=== PATIENT | female | born 1955 | race Caucasian/White ===

== ENCOUNTER 2017-05-20 12:00 | Outpatient (RCR) | payer BC, SELFPAY ==
--- NOTE | 2017-04-21 15:51 | HP.PTEVAL ---
Patient's Visit Information FLAVIO DUMONT is a 62 year old F referred to Physical Therapy by Juancho LEONG with a diagnosis of Back pain. Date of Evaluation: 04/21/17 Physical Therapist: Wilder Bajwa DPT, OC - Visit Plan Frequency: 2x /Week Duration: 4-6 Weeks Plan: 2x/week for 4 weeks for. 1. quad/ITB/piri stretching after rollout and long leg distraction/belt mobs. 2. gradual hip strength progression to tolerance start NWB. 3. moist heat as needed. 4. Progress HEP stretches asnd strength. - Subjective Subjective: September of 2015 got LBP insidious onset. Has exercises that she does intermittently. 75% better now than 1.5 years ago. Has had steroids and pain management. MRI has shown bone spurs and disc protrusion. Also has hip bursitis L and has had injections there before. Spinal injections did nto help as much as hip injections. Said it was not time for hip replacement yet. Dr. Pastor is thinking about a pain implant whcih she did not want so he suggested PT again. Pain is intermittent and is comfy at rest. 10 minutes of walking starts to hurt outter L hip. Back does not hurt at all. Standing too long hurts also. Sitting too much can hurt to get up. Sleep is OK most of time but sometimes hard to get comfy. Activities at home are difficult to be on feet too long and to climb steps. Basic ADLs are OK unless she does too much, has to do a little at a time.. Life normal but it hurts. 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 No numbness and tingling. - Pain L lateral hip and posterior. Pain Intensity (Out of 10): 0 Pain Intensity Range: 0, 4 - Objective Patioent ambulates into PT slow and L hip never extends. Mild L antalgia intermittently. Steps are reciprocal with one rail and pain left lateral hip. + L DAVID and FADDIR and scour. Limited L hip ROM in rotations to 20 er and 5 IR limited by pain. end range flexion is painful. l hip ext limited to -5 degrees, quad very tight as is ITB. L hip abd 8 degrees vs 20+ on R. R hip much more mobile and not painful. L hip tender in ITB and piri. L hip 4-/5 strength and painful in lateral hip with most contractions lying, seated much better(short lever arm). knee and ankle AROM WFL and strength 4+/5. LB AROM mild limtied in ext otherwise full and painfree. - Goals Goal 1:: Pain in L hip 1/10 at worst and 75% better overall. Goal Time Frame: 4-6 Weeks Goal 2:: Pateint ambulate with 5 degrees of hip ext L iwthout pain. Goal Time Frame: 4-6 Weeks Goal 3:: I approp HEP to minimize future problems. Goal Time Frame: 4-6 Weeks - Rehabilitation Potential Physical Therapy Diagnosis: Likely L hip degenerative pain Rehabilitation Potential: Fair - Anticipated Interventions Patient/Client Instruction: Educate patient on: Condition, Plan of Care For the Purpose of:: To decrease pain, To increase ROM, To improve ability of physical actions for home/community/work/leisure Therapeutic Exercise to Include: Strength training, Flexibilty training, Passive ROM, Active ROM For the Purpose of:: To decrease pain, To increase ROM, To improve ability of physical actions for home/community/work/leisure Manual Therapy Techniques to Include: Soft tissue mobilization For the Purpose of:: To decrease pain, To increase ROM, To improve nutrient delivery to tissue Thermo therapy (hot pack): Yes For the Purpose of:: To decrease pain, To improve nutrient delivery to tissue Thank you for the opportunity to evaluate your patient. For Medicare and Medicare HMO plans, please review the plan of care and approve it. It will need to be FAXED BACK to us at [phone] for Medicare purposes. Please let me know if there are questions or concerns regarding this plan of care. Physician Signature: Date:
--- NOTE | 2017-08-25 15:09 | HP.PTDCSUM ---
HP - PT D/C Summary It has been my pleasure to treat FLAVIO DUMONT under orders from Juancho Pastor, for the diagnosis of Back pain for a total of 9 visit(s). Discharge Date: 05/20/17 Please see the following information for a summary of their discharge status. - Subjective Subjective: Pain got better but then went back to bad again. Pain 4/10 lateral and posterior hip and locks up. Sleep is OK. Can only walk so much before it hurts(6 min). Feels better after departure from PT. Doing home stretches daily. No f/u with [facility]. - Pain L lateral hip and posterior. Pain Intensity (Out of 10): 0 - Objective Objective/Function: Walking is better without antalgia today and getting decent and symmetrical hip ext at end of stance phase. Steps are reciproca with little pain L hip. OVERALL PATIENT HAS STILL PAIN. THIS LOOKS TO BE AN ARTHRITIC HIP PROBLEM AND THAT SHOULD BE CONSIDERED IF/WHEN SHE DECIDES TO RETURN TO DOCTOR HIP INJECTION HAS HELPED IN THE PAST AND AT SOME POINT SHE WILL NEED ORTHO CONSULT. - Goals Goal 1:: Pain in L hip 1/10 at worst and 75% better overall. Goal Progress: Not Progressing Goal 2:: Pateint ambulate with 5 degrees of hip ext L iwthout pain. Goal 3:: I approp HEP to minimize future problems. Goal Progress: Goal Met - Plan Plan: pt to continue via HEP and community gym. Contact doctor if pain worsens. - D/C Information Discharge Comments: Pt doing slightly better functionally but still painful. Will continue on own and contact doctor for pain as needed. If there are questions or concerns regarding this patient's physical therapy, please feel free to call me at [phone]. Thank you for the referral of this patient. Sincerely, Wilder Bajwa, DPT, OC
== END 2017-05-20 19:00 | disposition home or self-care (01) ==
LOC: PT 12:00
PROVIDERS: Family Provider Internal Medicine; PCP Internal Medicine; Visit Provider Anesthesiology Pain Medicine
DX: M54.9 Dorsalgia, unspecified (principal)
CPT/HCPCS: 97110; 97161; 97530

== ENCOUNTER → 2017-09-27 14:58 | Outpatient (CLI) | payer OTHER, SELFPAY ==
[2017-09-27 16:02] LABS: Anion Gap 2 (5-15); BUN 11 mg/dL (7-18); BUN/Creat Ratio 20.4 RATIO (10-20); Calcium,Total 8.7 mg/dL (8.5-10.1); Chloride 105 mmol/L (98-107); Cholesterol 240 mg/dL (200); Creatinine, Serum 0.54 mg/dL (0.55-1.02); EST Glomerular Filtration Rate 121 mL/min (>60); Est Glom Filt Rate - Afr Amer 146 mL/min (>60); Glucose 83 mg/dL (74-106); High Density Lipoprotein 65 mg/dL; Potassium 3.8 mmol/L (3.5-5.1); Sodium Level 138 mmol/L (136-145); Triglycerides 120 mg/dL; Very Low Density Lipoprotein 24 mg/dL (5-40)
== END ==
PROVIDERS: Family Provider Family Medicine; PCP Family Medicine; Visit Provider Family Medicine
DX: Z00.00 Encounter for general adult medical examination without abnormal findings (principal); M25.552 Pain in left hip
CPT/HCPCS: 36415; 80048; 80061

== ENCOUNTER → 2018-05-19 15:15 | Outpatient (CLI) | payer MEDICARE, SELFPAY ==
--- NOTE | 2018-05-19 15:18 | BI_ITS ---
MAMMOGRAPHY - BILATERAL SCREENING REASON FOR EXAM: Female, 63 years old. Routine annual screening examination. PERTINENT HISTORY: Non-contributory. TECHNIQUE: Digital bilateral breast princess (3D mammographic acquisition) in the CC and MLO projections. 2-D mediolateral oblique (MLO) and craniocaudad (CC) views of both breasts were obtained. CAD: Full Field Digital Mammography with Computer Added Detection was performed. COMPARISON: Comparison is made with prior axial examination in March 16, 2017. FINDINGS: Breast Composition: There are scattered areas of fibroglandular density. There are no dominant masses or suspicious calcifications. No other significant abnormalities are identified. There has been no significant change since the prior study. BI/SCREENING MAMM (CAD), BILAT IMPRESSION: Stable bilateral screening mammogram. Yearly follow-up mammogram recommended. (A) ASSESSMENT CATEGORY: BIRADS Category 1: Negative. A letter regarding these results will be sent to the patient by the facility within 30 days. Approximately 10% of breast cancers are not detected by mammography. A normal mammogram should not delay biopsy of a clinically suspicious abnormality. [id number] Electronically Signed: Eugenio Perez MD at 8:37 EST , Service support ,
== END ==
PROVIDERS: Family Provider Family Medicine; PCP Family Medicine; Referring Provider Family Medicine; Visit Provider Family Medicine
DX: Z12.31 Encounter for screening mammogram for malignant neoplasm of breast (principal)
CPT/HCPCS: 77063; 77067

== ENCOUNTER → 2018-10-10 13:05 | Outpatient (CLI) | payer MEDICARE, SELFPAY ==
--- NOTE | 2018-10-10 13:20 | BD_ITS ---
STUDY: DUAL ENERGY X-RAY ABSORPTIOMETRY / DXA REASON FOR EXAM: Female, 63 years old. The patient is postmenopausal. Loss of height. TECHNIQUE: Bone Mineral Density (BMD) measurements of lumbar spine and bilateral hips were obtained. COMPARISON: None. FINDINGS: Lumbar Spine (L1-L4): g/cm2 (1.198) / T-score (0.2) / Z-score (1.7) Findings are suggestive of normal bone density with a low fracture risk. Increased kyphosis. Left Femur Total: g/cm2 (1.013) / T-score (0.0) / Z-score (1.3) Left Femoral Neck: g/cm2 (0.978) / T-score (-0.4) / Z-score (1.0) Right Femur Total: g/cm2 (0.992) / T-score (-0.1) / Z-score (1.1) Right Femoral Neck: g/cm2 (0.895) / T-score (-1.0) / Z-score (0.5) BD/Dexa Bone Density Study IMPRESSION: The patient is considered normal as outlined below according to World Hiram Organization (WHO) criteria with a low fracture risk. Reference Information: The T-score is the number of standard deviations above or below the standard which is normal for young adults at their peak bone mineral density. The World Health Organization (WHO) interprets the T-scores as follows: Above -1 Normal bone density Between -1 and -2.5 Osteopenia Equal to / or below -2.5 Osteoporosis As a practical clinical guideline, osteopenia may be graded as follows: Mild -1 through -1.5 Moderate -1.6 through -2.0 Severe -2.1 through -2.4 The Z-score is the number of standard deviations above or below age-matched controls. A Z-score of less than -1.5 would be considered abnormal. References: 1. NIH Osteoporosis and Related Bone Diseases http://www.osteo.org 2. International Society for Clinical Densitometry http://www.iscd.org 3. National Osteoporosis Foundation http://www.nof.org Electronically Signed: Eugenio Perez, at 10:31 EDT , Service support ,
== END ==
PROVIDERS: Family Provider Family Medicine; PCP Family Medicine; Referring Provider Family Medicine; Visit Provider Family Medicine
DX: N95.9 Unspecified menopausal and perimenopausal disorder (principal)
CPT/HCPCS: 77080

== ENCOUNTER → 2019-05-21 15:20 | Outpatient (CLI) | payer MEDICARE, SELFPAY ==
--- NOTE | 2019-05-21 15:22 | BI_ITS ---
MAMMOGRAPHY - BILATERAL SCREENING REASON FOR EXAM: Female, 64 years old. Routine annual screening examination. PERTINENT HISTORY: Non-contributory. TECHNIQUE: Digital bilateral breast aicha (3D mammographic acquisition) in the CC and MLO projections. 2-D mediolateral oblique (MLO) and craniocaudad (CC) views of both breasts were obtained. CAD: Full Field Digital Mammography with Computer Added Detection was performed. COMPARISON: Comparison is made with prior study dated May 19, 2018. FINDINGS: Breast Composition: There are scattered areas of fibroglandular density. There are no dominant masses or suspicious calcifications. No other significant abnormalities are identified. There has been no significant change since the prior study. BI/SCREEN MAMM (CAD) W/AICHA BILAT IMPRESSION: Stable bilateral screening mammogram. Yearly follow-up mammogram recommended. (A) ASSESSMENT CATEGORY: BIRADS Category 1: Negative. A letter regarding these results will be sent to the patient by the facility within 30 days. Approximately 10% of breast cancers are not detected by mammography. A normal mammogram should not delay biopsy of a clinically suspicious abnormality. [id number] Electronically Signed: Eugenio Perez, at 8:26 EST , Service support ,
== END ==
PROVIDERS: PCP Family Medicine; Referring Provider Family Medicine; Visit Provider Family Medicine
DX: Z12.31 Encounter for screening mammogram for malignant neoplasm of breast (principal)
CPT/HCPCS: 77063; 77067

== ENCOUNTER 2019-08-12 12:37 | Emergency (ER) | payer MEDICARE, SELFPAY ==
[2019-08-12 12:39] VITALS: BP 152/71; PULSE 85; RESP 17; TEMP 36.5; O2SAT 99; BMI 36.1
--- NOTE | 2019-08-12 12:50 | RAD_ITS ---
STUDY: X-RAY - RIGHT HAND, ATTENTION FOURTH FINGER REASON FOR EXAM: Female, 64 years old. smashed distal 4th finger in a door yesterday TECHNIQUE: 3 view(s) of the finger were obtained. COMPARISON: None. FINDINGS: Normal metacarpal head. Normal metacarpophalangeal joint. Normal proximal phalanx. Normal middle phalanx. Normal distal phalanx. There is mild degenerative arthrosis of the proximal interphalangeal joint. There is chronic-appearing fragmentation There is mild degenerative arthrosis of the distal interphalangeal joint. There is no demonstrated fracture. RAD/Finger(s) Min 2 Views IMPRESSION: No acute fracture seen. Electronically Signed: Juan Valle MD at 13:50 EDT , Service support ,
--- NOTE | 2019-08-12 13:16 | ED.DCSUM_ITS ---
- ER Visit Summary Date of Service: 08/12/19 Chief Complaint: Finger injury History of Present Illness: The patient is a [address] Franco. She is right-hand dominant. Her tetanus is up-to-date. She got her right ring finger caught in a door yesterday. Reports she has a throbbing pain that was 4-10 at worst and is 1 out of 10 currently. Is worsened by touching it. It is relieved by rest. She does report she has paresthesias in her fingertip. She denies any other injuries or complaints. Physical Examination: Vitals: Stable. Afebrile. General: Well-nourished and well-developed. Head: Normocephalic atraumatic. Neck: Supple, no lymphadenopathy. No JVD. Nontender. Cardiovascular: Regular rate and rhythm. No murmurs. Respiratory: No respiratory distress. Clear to auscultation bilaterally. Abdominal: Soft, nontender, nondistended, normal bowel sounds. No guarding, rebound, or peritoneal signs. Back: Nontender. Extremities: There is a 1 cm laceration on the dorsum of the distal phalanx of her right fourth finger. There is no involvement of the nail. There is minimal active bleeding. There is moderate soft tissue swelling and mild tenderness to palpation. There is no evidence of a felon at this time. There is no erythema or warmth. Skin: Normal color, no rash. Neurologic: Alert and oriented ?3. Cranial nerves II through XII are intact. Normal strength and sensation. Psych: Normal affect. Test Results: X-ray is negative. Emergency Department Course and Treatment: Given that this is been more than 24 hours ago the I discussed the patient that it cannot be sutured. It will be allowed to heal by secondary intention. She will be placed on Keflex. She is given a first dose in the emergency department. Treatment Plan: Patient will be discharged with instructions to keep the area clean, dry, and covered. Place antibiotic ointment. Use Keflex to prevent infection. Follow-up with Dr. Franco in 1 week. Return to the emergency department for any worsening symptoms. Disposition: To home in improved and stable condition. Impression: 1. Laceration right fourth finger, 1 cm, not repaired. This note was generated with Helpmycashation software. It may contain incorrect words, spelling, and punctuation that were not noted in review of the chart prior to signing ED Disposition - Plan for ED Patient: Instructions: ED Laceration Old Not Sutr Prescriptions: Cephalexin [Keflex] 500 mg PO Q6 #20 capsule Referrals: Iesha Franco MD [Primary Care Provider] - 1 Week if not improving
[2019-08-12] MEDS: Cephalexin 250 MG Capsule 500 MG PO (13:27)
== END 2019-08-12 13:35 | disposition home or self-care (01) ==
LOC: ED 13:05
PROVIDERS: Emergency Provider Emergency Medicine; PCP Family Medicine
DX: S61.214A Laceration without foreign body of right ring finger without damage to nail, initial encounter (principal); W23.0XXA Caught, crushed, jammed, or pinched between moving objects, initial encounter; Y93.9 Activity, unspecified; Y92.9 Unspecified place or not applicable
CPT/HCPCS: 73140; 99283

== ENCOUNTER → 2020-06-11 14:41 | Outpatient (CLI) | payer MEDICARE, SELFPAY ==
[2020-06-11 19:14] LABS: Anion Gap 8 (5-15); BUN 12 mg/dL (7-18); BUN/Creat Ratio 20.7 RATIO (10-20); Chloride 105 mmol/L (98-107); Cholesterol 249 mg/dL (200); Creatinine, Serum 0.58 mg/dL (0.55-1.02); EST Glomerular Filtration Rate 110 mL/min (>60); Est Glom Filt Rate - Afr Amer 134 mL/min (>60); Glucose 89 mg/dL (74-106); High Density Lipoprotein 80 mg/dL; Potassium 3.7 mmol/L (3.5-5.1); Sodium Level 139 mmol/L (136-145); Triglycerides 48 mg/dL; Very Low Density Lipoprotein 10 mg/dL (5-40)
== END ==
PROVIDERS: PCP Family Medicine; Referring Provider Family Medicine; Visit Provider Family Medicine
DX: Z00.00 Encounter for general adult medical examination without abnormal findings (principal); E78.00 Pure hypercholesterolemia, unspecified
CPT/HCPCS: 36415; 80048; 80061

== ENCOUNTER → 2020-06-20 13:51 | Outpatient (CLI) | payer MEDICARE, SELFPAY ==
--- NOTE | 2020-06-20 13:54 | BI_ITS ---
MAMMOGRAPHY - BILATERAL SCREENING REASON FOR EXAM: Female, 65 years old. Routine annual screening examination. PERTINENT HISTORY: Non-contributory. TECHNIQUE: Digital bilateral breast aicha (3D mammographic acquisition) in the CC and MLO projections. 2-D mediolateral oblique (MLO) and craniocaudad (CC) views of both breasts were obtained. CAD: Full Field Digital Mammography with Computer Added Detection was performed. COMPARISON: Comparison is made with prior study dated 05/21/2019 and 05/19/2018. FINDINGS: Breast Composition: There are scattered areas of fibroglandular density. There are no dominant masses or suspicious calcifications. Stable small benign-appearing left axillary No other significant abnormalities are identified. There has been no significant change since the prior study. BI/SCRN MAMM (CAD)W/AICHA BILAT IMPRESSION: Stable bilateral screening mammogram. Yearly follow-up mammogram recommended. (A) ASSESSMENT CATEGORY: BIRADS Category 2: Benign. A letter regarding these results will be sent to the patient by the facility within 30 days. Approximately 10% of breast cancers are not detected by mammography. A normal mammogram should not delay biopsy of a clinically suspicious abnormality. [id number] Electronically Signed: Eugenio Perez MD at 14:53 EST , Service support ,
== END ==
PROVIDERS: PCP Family Medicine; Referring Provider Family Medicine; Visit Provider Family Medicine
DX: Z12.31 Encounter for screening mammogram for malignant neoplasm of breast (principal)
CPT/HCPCS: 77063; 77067

== ENCOUNTER 2020-06-24 08:19 | Outpatient (RCR) | payer MEDICARE, SELFPAY ==
[2020-06-24] MEDS: COVID-19 VACC, MRNA(PFIZER)/PF 30 MCG/0.3 ML SYRINGE IM (10:29)
[2020-07-15] MEDS: COVID-19 VACC, MRNA(PFIZER)/PF 30 MCG/0.3 ML SYRINGE IM (10:21)
== END 2020-09-23 23:59 ==
LOC: IMMUN 08:19
PROVIDERS: PCP Family Medicine; Referring Provider Family Medicine; Visit Provider Family Medicine
DX: Z23 Encounter for immunization (principal)
CPT/HCPCS: 0001A; 0002A; 91300

== ENCOUNTER → 2020-08-13 09:00 | Outpatient (CLI) | payer MEDICARE, SELFPAY ==
[2020-08-13 11:06] LABS: AST(SGOT) 14 U/L (15-37); Alanine Aminotransfer ALT/SGPT 18 U/L (13-56); Cholesterol 159 mg/dL (200); High Density Lipoprotein 72 mg/dL; Triglycerides 89 mg/dL; Very Low Density Lipoprotein 18 mg/dL (5-40)
== END ==
PROVIDERS: PCP Family Medicine; Referring Provider Family Medicine; Visit Provider Family Medicine
DX: E78.00 Pure hypercholesterolemia, unspecified (principal)
CPT/HCPCS: 36415; 80061; 84450; 84460

== ENCOUNTER 2021-06-12 11:08 | Outpatient (CLI) | payer MEDICARE, SELFPAY ==
[2021-06-12 12:43] LABS: AST(SGOT) 14 U/L (15-37); Alanine Aminotransfer ALT/SGPT 20 U/L (13-56); Cholesterol 166 mg/dL (200); High Density Lipoprotein 84 mg/dL; Triglycerides 58 mg/dL; Very Low Density Lipoprotein 12 mg/dL (5-40)
== END 2021-06-12 23:59 | disposition home or self-care (01) ==
LOC: MFPLAB 11:11
PROVIDERS: PCP Family Medicine; Referring Provider Family Medicine; Visit Provider Family Medicine
DX: E78.00 Pure hypercholesterolemia, unspecified (principal)
CPT/HCPCS: 36415; 80061; 84450; 84460

== ENCOUNTER 2021-06-30 14:41 | Outpatient (CLI) | payer MEDICARE, SELFPAY ==
--- NOTE | 2021-06-30 14:44 | BI_ITS ---
MAMMOGRAPHY - BILATERAL SCREENING 3-D TOMOSYNTHESIS REASON FOR EXAM: Female, 66 years old. screening PERTINENT HISTORY: No significant family history. TECHNIQUE: 2-D mammograms and 3-D Tomosynthesis of the breast (s) were performed. CAD was performed. COMPARISON: 06/20/2020 FINDINGS: The breast composition is heterogeneously dense that can obscure small breast masses. Scattered benign calcifications are seen. No dense spiculated masses or suspicious microcalcifications are identified. No architectural distortion is identified. There is no skin thickening or retraction. There has been no significant change since the prior study. BI/SCRN MAMM (CAD)W/AICHA BILAT IMPRESSION: No mammographic signs of malignancy. Routine yearly mammograms recommended. ASSESSMENT CATEGORY: BIRADS Category 1: Negative. A letter regarding these results will be sent to the patient by the facility within 30 days. FOLLOW UP RECOMMENDATION: Yearly follow up mammogram recommended. (A) Approximately 10% of breast cancers are not detected by mammography. A normal mammogram should not delay biopsy of a clinically suspicious abnormality. Electronically Signed: Jose Miguel Samuel MD at 18:07 EDT ,
--- NOTE | 2021-06-30 14:48 | BD_ITS ---
STUDY: DUAL ENERGY X-RAY ABSORPTIOMETRY / DXA REASON FOR EXAM: Female, 66 years old. [id number]. Patient is postmenopausal. TECHNIQUE: Bone Mineral Density (BMD) measurements of lumbar spine and bilateral hips were obtained. COMPARISON: Comparison is made with prior study dated 10/10/2018. FINDINGS: Lumbar Spine (L1-L4): g/cm2 (0.888) / T-score (-1.4) / Z-score (0.6) Findings are suggestive of osteopenia with a low fracture risk. Left Femur Total: g/cm2 (0.988) / T-score (0.4) / Z-score (1.8) Left Femoral Neck: g/cm2 (0.859) / T-score (0.1) / Z-score (1.8) Right Femur Total: g/cm2 (1.005) / T-score (0.5) / Z-score (1.9) Right Femoral Neck: g/cm2 (0.755) / T-score (-0.8) / Z-score (0.9) The T-Scores on the most recent prior examination were: Lumbar Spine (L1-L4): There has been worsening of bone density since the previous examination. Left Femur Total: which represents an improvement of 4.4%. Right Femur Total: which represents an improvement of 8.4%. BD/Dexa Bone Density Study IMPRESSION: The patient is considered osteopenic as outlined below according to World Hiram Organization (WHO) criteria with a low fracture risk. There has been improvement of bone density since the previous examination. Reference Information: The T-score is the number of standard deviations above or below the standard which is normal for young adults at their peak bone mineral density. The World Health Organization (WHO) interprets the T-scores as follows: Above -1 Normal bone density Between -1 and -2.5 Osteopenia Equal to / or below -2.5 Osteoporosis As a practical clinical guideline, osteopenia may be graded as follows: Mild -1 through -1.5 Moderate -1.6 through -2.0 Severe -2.1 through -2.4 The Z-score is the number of standard deviations above or below age-matched controls. A Z-score of less than -1.5 would be considered abnormal. References: 1. NIH Osteoporosis and Related Bone Diseases www osteo.org 2. International Society for Clinical Densitometry www iscd.org 3. National Osteoporosis Foundation www nof.org Electronically Signed: Eugenio Perez MD at 9:28 EDT ,
== END 2021-06-30 23:59 | disposition home or self-care (01) ==
LOC: OPBD 14:42
PROVIDERS: PCP Family Medicine; Visit Provider Family Medicine
DX: N95.9 Unspecified menopausal and perimenopausal disorder (principal); Z12.31 Encounter for screening mammogram for malignant neoplasm of breast
CPT/HCPCS: 77063; 77067; 77080

== ENCOUNTER → 2022-06-14 | Outpatient (CLI) | payer MEDICARE, SELFPAY ==
[2022-06-14 18:11] LABS: AST(SGOT) 15 U/L (15-37); Alanine Aminotransfer ALT/SGPT 20 U/L (13-56); Cholesterol 180 mg/dL (200); High Density Lipoprotein 75 mg/dL; Triglycerides 114 mg/dL; Very Low Density Lipoprotein 23 mg/dL (5-40)
== END | disposition home or self-care (01) ==
LOC: MFPLAB 14:46
PROVIDERS: PCP Family Medicine; Visit Provider Family Medicine
DX: E78.00 Pure hypercholesterolemia, unspecified (principal)
CPT/HCPCS: 36415; 80061; 84450; 84460

== ENCOUNTER → 2022-07-02 | Outpatient (CLI) | payer MEDICARE, SELFPAY ==
--- NOTE | 2022-07-02 11:59 | BI_ITS ---
MAMMOGRAPHY - BILATERAL SCREENING 3-D TOMOSYNTHESIS REASON FOR EXAM: Female, 67 years old. Routine screening PERTINENT HISTORY: No significant family history. TECHNIQUE: 2-D mammograms and 3-D Tomosynthesis of the breast (s) were performed. CAD was performed. COMPARISON: 06/30/2021 FINDINGS: The breast composition is composed of scattered fibroglandular density. Scattered benign calcifications are seen. No dense spiculated masses or suspicious microcalcifications are identified. No architectural distortion is identified. There is no skin thickening or retraction. There has been no significant change since the prior study. BI/SCRN MAMM (CAD)W/AICHA BILAT IMPRESSION: No mammographic signs of malignancy. Routine yearly mammograms recommended. ASSESSMENT CATEGORY: BIRADS Category 1: Negative. A letter regarding these results will be sent to the patient by the facility within 30 days. FOLLOW UP RECOMMENDATION: Yearly follow up mammogram recommended. (A) Approximately 10% of breast cancers are not detected by mammography. A normal mammogram should not delay biopsy of a clinically suspicious abnormality. Electronically Signed: Fer Martins MD at 12:33 EDT ,
== END | disposition home or self-care (01) ==
LOC: OPBI 11:58
PROVIDERS: PCP Family Medicine; Visit Provider Family Medicine
DX: Z12.31 Encounter for screening mammogram for malignant neoplasm of breast (principal)
CPT/HCPCS: 77063; 77067

== ENCOUNTER 2022-07-09 13:00 | Outpatient (RCR) | payer MEDICARE, SELFPAY ==
--- NOTE | 2022-06-15 15:46 | HP.PTEVAL_ITS ---
Patient's Visit Information FLAVIO DUMONT is a 67 year old F referred to Physical Therapy by Dr. Iesha Franoc MD with a diagnosis of PIRIFORMIS. Date of Evaluation: 06/15/22 Physical Therapist: Steven Guzman PT, Cert MDT, OCS - Visit Plan Frequency: 2x /Week Duration: 4 Weeks Plan: PT INTERVETIONS LE FLEXABILITY , LUMBAR ROM , DLS , HIP STRENGTHENING ,POSTURAL EX'S, AND MODALTIES - Subjective This 67 y/o female presents to physical therapy piriformis. Patient has had right LS pain. Etiology of symptoms no specific. Seen Dr recommended PT . No diagnostic. Aggravating factors sitting/standing/bending/lifting. Alleviating factors rest. Denies paresthesia/tingling-. Bowel/bladder-. Coughing/sneezing-. Patient sleeping good. No abnormal night pain. Patient had lumbar surgery discectomy 1993. Patient had PT in hip. Patient pain affects QOL . Patient goals no more pain. SOCIAL: . VOCATION: retired - Pain Left Back Pain Intensity (Out of 10): 6 Pain Intensity Range: 10 - Objective POSTURE: mild forward posture. PALPATION: tender SI/LS ,piriformis. SYMTRIES: align. GAIT: Ambulates with reciprocal pattern mild forward posture. LUMBAR ROM: flexion mod loss pain ,extension min loss , side glides min loss. FLEXABLITY: IR 25 degrees ,piriformis min tight. MMT: quads/hams 4/5 ,peak force right hip 12.2,abduction 10.5,ankle 4/5 - Special Tests L/S Slump test left side: Negative L/S Slump test right side: Negative L/S Left Straight Leg Raise: Negative L/S Right Straight Leg Raise: Negative Lumbar Standing: Flexion - Mechanical Response: No effect Lumbar Standing: Flexion - Symptoms During Testing: Increases Lumbar Standing: Flexion - Symptoms After Testing: Worse Lumbar Standing: Extension - Mechanical Response: No effect Lumbar Standing: Extension - Symptoms During Testing: No effect Lumbar Standing: Extension - Symptoms After Testing: No effect Lumbar Standing: Right Side Glides - Mechanical Response: No effect Lumbar Standing: Right Side [place] - Symptoms During Testing: No effect Lumbar Standing: Right Side [place] - Symptoms After Testing: No effect Lumbar Standing: Left Side [place] - Mechanical Response: No effect Lumbar Standing: Left Side [place] - Symptoms During Testing: No effect Lumbar Standing: Left Side [place] - Symptoms After Testing: No effect Lumbar Lying: Flexion - Mechanical Response: No effect Lumbar Lying: Flexion - Symptoms During Testing: Increases Lumbar Lying: Flexion - Symptoms After Testing: No worse Lumbar Lying: Extension - Mechanical Response: No effect Lumbar Lying: Extension - Symptoms During Testing: Increases Lumbar Lying: Extension - Symptoms After Testing: No worse R Hip Scour: Negative R Hip Trendelenberg - Glut Medius: Negative R Hip Cherelle - IT Band: Negative - Balance/Special Test Scores Oswestry Low Back Score: 21 - Goals Goal 1:: I with HEP Goal Time Frame: 4-6 Weeks Goal 2:: I with posture/body mechanics 90 % of the time. Goal Time Frame: 4-6 Weeks Goal 3:: Patient to demonstrate 50% improvement with decrease function and less pain. Goal Time Frame: 4-6 Weeks Goal 4:: Patient to improve lumbar ROM for function of recovery to tie shoes Goal Time Frame: 4-6 Weeks Goal 5:: Patient to back oswestry score by 5 points to improve function. - Rehabilitation Potential Physical Therapy Diagnosis: This patient has right LS pain with weakness with hip abd ,flexion ,decrease ROM and worse with motion testing, and position with standing. thus benefit from skilled PT Rehabilitation Potential: Good - Anticipated Interventions Patient/Client Instruction: Educate patient on: Condition, Plan of Care For the Purpose of:: To decrease pain, To increase ROM, To improve muscle performance and motor function, To increase tolerance to activity/condition/position, To improve ability of physical actions for home/community/work/leisure, To improve health of tissue, To decrease soft tissue restriction, To increase flexibility/ROM Therapeutic Exercise to Include: Strength training, Postural training, Flexibilty training, Active ROM, Dynamic Lumbar Stabilization For the Purpose of:: To decrease pain, To increase ROM, To improve muscle performance and motor function, To increase tolerance to activity/condition/position, To improve ability of physical actions for home/community/work/leisure, To improve health of tissue, To decrease soft tissue restriction, To increase flexibility/ROM TENS: Yes IF ES: Yes Cryotherapy (ice pack, ice massage): Yes Thermo therapy (hot pack): Yes Ultrasound (thermal/non thermal): Yes For the Purpose of:: To decrease pain, To increase ROM, To improve nutrient delivery to tissue, To increase oxygenation perfusion, To improve health of tissue, To decrease soft tissue restriction Thank you for the opportunity to evaluate your patient. For Medicare and Medicare HMO plans, please review the plan of care and approve it. It will need to be FAXED BACK to us at [phone] for Medicare purposes. For Medicare only, by signing this I certify the plan of care. Please let me know if there are questions or concerns regarding this plan of care. Physician Signature: Date:
--- NOTE | 2022-11-14 18:15 | HP.PTDCSUM ---
Discharge Summary D/C summary: It has been my pleasure to treat FLAVIO DUMONT referred by Dr. Iesha Franco MD, with the diagnosis of PIRIFORMIS for a total of 8 visit(s). Discharge Date: 07/09/22 Please see the following information for a summary of their discharge status. Subjective Subjective: Patient reports some better ,But would like Pain Left Back: Pain Intensity (Out of 10): 2 R LB: Pain Intensity (Out of 10): 2 Overall Improvement % Improvement: 65 Objective Objective/Function: LUMBAR ROM: flexion mod loss pain ,extension min loss , side glides min loss. FLEXABLITY: IR 35 degrees ,piriformis min tight. MMT: quads/hams 4/5 ,peak force right hip 18.2,abduction 16.5 Goals Goal 1:: I with HEP Goal Progress: Goal Met Goal 2:: I with posture/body mechanics 90 % of the time. Goal Progress: Goal Met Goal 3:: Patient to demonstrate 50% improvement with decrease function and less pain. Goal Progress: Goal Met Goal 4:: Patient to improve lumbar ROM for function of recovery to tie shoes Goal Progress: Goal Met Goal 5:: Patient to back oswestry score by 5 points to improve function. Goal Progress: Goal Met Plan Plan: D/C D/C Information Discharge Comments: HEP d/c sentence: If there are questions or concerns regarding this patient's physical therapy, please feel free to call me at [phone]. Thank you for the referral of this patient. Sincerely, Steven Guzman, PT, Cert MDT, OCS Balance/Gait/Functional tests Balance/Special Test Scores Oswestry Low Back Score: 10
== END 2022-07-09 19:00 | disposition home or self-care (01) ==
LOC: PT 13:00
PROVIDERS: PCP Family Medicine; Referring Provider Family Medicine; Visit Provider Family Medicine
DX: G57.00 Lesion of sciatic nerve, unspecified lower limb (principal)
CPT/HCPCS: 97035; 97110; 97162

== ENCOUNTER → 2023-06-21 | Outpatient (CLI) | payer MEDICARE, SELFPAY ==
[2023-06-21 13:16] LABS: AST(SGOT) 18 U/L (15-37); Alanine Aminotransfer ALT/SGPT 19 U/L (13-56); Cholesterol 166 mg/dL (200); High Density Lipoprotein 77 mg/dL; Triglycerides 55 mg/dL; Very Low Density Lipoprotein 11 mg/dL (5-40)
== END | disposition home or self-care (01) ==
LOC: MFPLAB 10:12
PROVIDERS: PCP Family Medicine; Visit Provider Family Medicine
DX: E78.00 Pure hypercholesterolemia, unspecified (principal)
CPT/HCPCS: 36415; 80061; 84450; 84460

== ENCOUNTER → 2023-07-05 | Outpatient (CLI) | payer MEDICARE, SELFPAY ==
--- NOTE | 2023-07-05 10:39 | BI_ITS ---
MAMMOGRAPHY - BILATERAL SCREENING REASON FOR EXAM: Female, 68 years old. Routine annual screening examination. PERTINENT HISTORY: Non-contributory. TECHNIQUE: Digital bilateral breast aicha (3D mammographic acquisition) in the CC and MLO projections. 2-D mediolateral oblique (MLO) and craniocaudad (CC) views of both breasts were obtained. CAD: Full Field Digital Mammography with Computer Added Detection was performed. COMPARISON: Comparison is made with prior study July 02, 2022 and June 30, 2021. FINDINGS: Breast Composition: There are scattered areas of fibroglandular density. There are no dominant masses or suspicious calcifications. No other significant abnormalities are identified. There has been no significant change since the prior study. BI/SCRN MAMM (CAD)W/AICHA BILAT IMPRESSION: Stable bilateral screening mammogram. Yearly follow-up mammogram recommended. (A) ASSESSMENT CATEGORY: BIRADS Category 1: Negative. A letter regarding these results will be sent to the patient by the facility within 30 days. Approximately 10% of breast cancers are not detected by mammography. A normal mammogram should not delay biopsy of a clinically suspicious abnormality. [id number] Electronically Signed: Eugenio Perez MD at 11:34 EDT ,
== END | disposition home or self-care (01) ==
LOC: OPBI 10:39
PROVIDERS: PCP Family Medicine; Referring Provider Family Medicine; Visit Provider Family Medicine
DX: Z12.31 Encounter for screening mammogram for malignant neoplasm of breast (principal)
CPT/HCPCS: 77063; 77067

== ENCOUNTER → 2024-07-02 | Outpatient (CLI) | payer MEDICARE, SELFPAY ==
[2024-07-02 18:28] LABS: Hemoglobin A1c 5.9 % (<=5.6)
[2024-07-02 18:36] LABS: AST(SGOT) 15 U/L (<=31); Alanine Aminotransfer ALT/SGPT 8 U/L (<=34); Cholesterol 151 mg/dL (<=200); High Density Lipoprotein 69 mg/dL; Low Density Lipoprotein Calc. 68 mg/dL; Triglycerides 70 mg/dL; Very Low Density Lipoprotein 14 mg/dL (5-40); cholesterol:hdl ratio screen 2.18
== END | disposition home or self-care (01) ==
LOC: MFPLAB 12:14
PROVIDERS: PCP Family Medicine; Referring Provider Family Medicine; Visit Provider Family Medicine
DX: E66.01 Morbid (severe) obesity due to excess calories (principal); E78.00 Pure hypercholesterolemia, unspecified
CPT/HCPCS: 36415; 80061; 83036; 84443; 84450; 84460

== ENCOUNTER → 2024-07-12 | Outpatient (CLI) | payer MEDICARE, SELFPAY ==
--- NOTE | 2024-07-12 14:49 | BD_ITS ---
EXAM: DEXA BONE DENSITY STUDY 07/12/2024 REASON FOR EXAM: F,69 y/o patient is postmenopausal. TECHNIQUE: DXA scan of the lumbar spine and total body less head, using make and model. REFERENCE LINKS: ISCD Pediatric Positions ISCD Adult Positions COMPARISON: DEXA exam dated 06/30/2021 FINDINGS: BMD and Z-SCORES DEXA examination of lumbar spine shows a bone mineral density measures 0.928 grams/centimeter squared. T-score measures -1.0 and Z-score measures 1.2. There has been a significant increase in the bone mineral density of the lumbar spine by 4.5% since the prior study dated 06/30/2021. DEXA examination of the left femoral neck shows a bone mineral density measures 0.825 grams/centimeter squared. T-score measures -0.2 and Z-score measures 1.7. Total bone mineral density of the left hip measures 0.966 grams/centimeter squared. T-score measures 0.2 and Z-score measures 1.8. There has been a decrease in the bone mineral density of the left hip by 2.3% since the prior study dated 06/30/2021. DEXA examination of the right femoral neck shows a bone mineral density measured 0.748 g per cm2. T-score measures -0.9 and Z-score measures 1.0. Total bone mineral density of the right hip measures 0.984 grams/centimeter squared. T-score measures 0.3 and Z-score measures 1.9. There has been a decrease in the bone mineral density of the right hip by 2% since the prior study dated 06/30/2021. Fracture Risk Calculation: FRAX (10-year Fracture Risk) Score: The 10 year fracture risk index for major osteoporotic fracture is 7.8% and for hip fracture 0.8%. The patient does not meet the pharmacological treatment recommendations for prevention of osteoporosis BD/Dexa Bone Density Study IMPRESSION: Patient demonstrates osteopenia of the lumbar spine and normal bone mineral den sity of both hips. Recommend follow-up, if clinically warranted. Reading Location: [id number]
--- NOTE | 2024-07-12 14:49 | BI_ITS ---
EXAM: SCRN MAMM (CAD)W/AICHA BILAT DATE: 07/12/2024 CLINICAL HISTORY: F, Age 69 y/o , SCREENING BREAST CANCER BREAST CANCER RISK ASSESSMENT: Has not been recorded. TECHNIQUE: Bilateral screening digital breast tomosynthesis with 2D and 3D images. Computer aided detection. COMPARISON: Prior exam(s) dated 07/05/2019, 07/02/2022. FINDINGS: TISSUE DENSITY: The breast tissue is composed of scattered area of fibroglandular density. Bilateral Breast Mammographic Findings: Stable nodular masslike densities are seen in both breasts. Benign-appearing round microcalcifications are seen in both breasts. There are no other dominant masses, areas of architectural distortion, or suspicious calcifications in either breast. BI/SCRN MAMM (CAD)W/AICHA BILAT IMPRESSION: Right Breast: BIRADS 2 BENIGN FINDING. Left Breast: BIRADS 2 BENIGN FINDING. OVERALL FINAL ASSESSMENT: BIRADS 2 BENIGN FINDING RECOMMENDATION: Routine annual follow-up in 1 Year A letter with findings and recommendations will be mailed to the patient. Reading Location: [id number]
== END | disposition home or self-care (01) ==
LOC: OPBD 14:48
PROVIDERS: PCP Family Medicine
DX: Z13.820 Encounter for screening for osteoporosis (principal); Z78.0 Asymptomatic menopausal state; Z12.31 Encounter for screening mammogram for malignant neoplasm of breast
CPT/HCPCS: 77063; 77067; 77080

== ENCOUNTER 2024-09-14 11:49 | Day surgery (SDC) | payer MEDICARE, SELFPAY ==
[2024-09-14] VITALS (7 sets, daily range): BP systolic 110–151; BP diastolic 56–65; PULSE 65–78; RESP 16–18; TEMP 36.6–36.9; O2SAT 97–99; BMI 39.5
[2024-09-14] MEDS: Lactated Ringers 1,000 ML 15 ML IV (12:15)
--- NOTE | 2024-09-14 13:01 | PCM.PRE.AN2 ---
ASA Classification* ASA Classification ASA Classification: 3 Assessment & Plan Anesthesia* Anesthesia Assessment Anesthesia Assessment: Discussed sedation and/or anesthesia options, risks, benefits, and alternatives with patient/parents/legal guardian/POA. Questions invited. The patient/parents/legal guardian/POA seems to understand and agrees to proceed with anesthesia plan. Reviewed the physical assessment, medical history, allergy history and patient home medications list prior to surgery/procedure/anesthetic and documented any changes. Performed airway and anesthesia risk assessments. Anesthesia Type Anesthesia Type: MAC History Source History Obtained from:: Patient and Chart Anesthesia Focused Assessment* Temperature: 98.4 F Pulse Rate: 78 Blood Pressure: 151/63 Respiratory Rate: 18 Pulse Ox: 98 Oxygen Delivery Method: Room Air Airway Assessment Mouth opens: >3 cm Mallampati Score: III Teeth Condition: Dentures (Patient has full upper and lower dentures.) Neck Range of motion (ROM): Limited ROM (Slight decrease in extension) Focused Labs Anesthesia Preop lab: CBC CHEMISTRY Potassium 3.7 mmol/L (3.5-5.1) 06/11/20 14:43 06/11/20 Sodium 139 mmol/L (136-145) 06/11/20 14:43 06/11/20 BUN 12 mg/dL (7-18) 06/11/20 14:43 06/11/20 Creatinine 0.58 mg/dL (0.55-1.02) 06/11/20 14:43 06/11/20 Glucose 89 mg/dL (74-106) 06/11/20 14:43 06/11/20 TSH 1.920 uIU/mL (0.300-4.200) 07/02/24 12:17 07/02/24 COAG Pre-Assessment Diagnosis/Proposed Procedure Planned Operative Procedure(s): CSCOPE OA Anesthesia History 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 When Was Last Pacemaker Check QUESTION #4 FULL TEXT: You/Your Family Experience fever (hyperthermia) with Anesthesia Last Oral Intake Last Oral intake: Last Oral Intake NPO since 19:30 09/14/24 12:11 Meds taken in AM with sips of No 09/14/24 12:11 water? Meds patient instructed to take am of surgery PONV PONV - bio medical technician: PONV - bio medical technician Female Yes 09/13/24 09:13 HX of Motion Sickness No 09/13/24 09:13 HX of N/V After Surgery No 09/13/24 09:13 Non-Smoker Yes 09/13/24 09:13 Duration of Surgery greater No 09/13/24 09:13 than 60 minutes Number of Risk Factors 2 09/13/24 09:13 PONV Score Moderate Risk 09/13/24 09:13 Height & Weight Height & Weight: Anesthesia: Height & Weight Height 5 ft 2 in 09/14/24 12:11 Weight: 98 kg 09/14/24 12:11 Body Mass Index (BMI) 39.5 09/14/24 12:11 Respiratory Assessment Respiratory Assessment - bio medical technician: Respiratory Tract Infection Hx - bio medical technician Hx Respiratory Tract Infection No 09/13/24 09:13 STOP Sleep Apnea STOP Sleep Apnea - bio medical technician: STOP Sleep Apnea - bio medical technician Hx Hypertension No 09/13/24 09:13 Hx Sleep Apnea No 09/13/24 09:13 CPAP BIPAP Do you snore loudly (louder No 09/13/24 09:13 than talking or can be heard Do you often feel tired/ No 09/13/24 09:13 fatigued/ sleepy during daytime? Has anyone observed you stop No 09/13/24 09:13 breathing during sleep? STOP Results Negative 09/13/24 09:13 QUESTION #5 FULL TEXT : Do you snore loudly (louder than talking or can be heard through closed doors)? 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 Specify any problems Hx of Preganancy in last 3 No 09/13/24 09:13 Months Nurse Filling Out Transfusion DSCHRIBER 09/13/24 09:13 & Questions: Date: 09/13/24 09/13/24 09:13 Time: 09:14 09/13/24 09:13 Patient unable to answer at this time (ie. confused, unrespo /Reproduction History /Reproductive History - bio medical technician: /Reproductive Hx- bio medical technician Hx Now No 09/13/24 09:13 Gestational Age (in weeks): EDC: Hx Hx Para Hx Section SAB No 09/13/24 09:13 Active Medications Active Medications: Current Medications Generic Name Dose Route Start Last Admin Trade Name Freq PRN Reason Stop Dose Admin Lactated Ringer's 1,000 mls @ 15 mls/hr 09/14/24 12:00 09/14/24 12:15 IV 15 mls/hr .Q48H DUC Administration PFSH Medical History Wears glasses Wears dentures Post-menopausal Arthritis High cholesterol Shortness of breath on exertion Leg cramps Former smoker Screening for colon cancer Home Medications ?Medication ?Instructions ?Recorded ?Last Taken ?Type estradiol 0.01% (0.1 mg/gram) 0.25 appful vaginal SUWE 09/13/24 Unknown History vaginal cream (Estrace) rosuvastatin 10 mg tablet 10 mg PO QHS high colesterol 09/13/24 Unknown History Allergy/AdvReac Type Severity Reaction Status Date / Time No Known Allergies Allergy Verified 09/14/24 12:10 Surgical History History of bunionectomy of right great toe History of bunionectomy of both great toes Hx of lumbar discectomy Hx of tubal ligation Hx of ovarian cystectomy Hx of colonoscopy Social History Smoking Status: Former smoker Review of Systems (Anesthesia) ROS Narrative System reviewed and no additional complaints, except as documented.
--- NOTE | 2024-09-14 13:09 | H&P.OPEN ---
HPI - General HPI Narrative FLAVIO DUMONT, is a 69 F who presents for surveillance colonoscopy. Her last colonoscopy was 4 years ago and she was recommended to have a repeat. She had polyps removed. She denies abdominal pain or blood in the stool. No family history of colon cancer. [facility] Medical History (Updated 09/14/24 @ 13:[address] Giovanni Brewster MD) Wears glasses Wears dentures Post-menopausal Arthritis High cholesterol Shortness of breath on exertion Leg cramps Former smoker Screening for colon cancer Home Medications ?Medication ?Instructions ?Recorded ?Last Taken ?Type estradiol 0.01% (0.1 mg/gram) 0.25 appful vaginal SUWE 09/13/24 Unknown History vaginal cream (Estrace) rosuvastatin 10 mg tablet 10 mg PO QHS high colesterol 09/13/24 Unknown History Allergy/AdvReac Type Severity Reaction Status Date / Time No Known Allergies Allergy Verified 09/14/24 12:10 Surgical History (Updated 09/13/24 @ 09:19 by Debra Hauser) History of bunionectomy of right great toe History of bunionectomy of both great toes Hx of lumbar discectomy Hx of tubal ligation Hx of ovarian cystectomy Hx of colonoscopy Social History Smoking Status: Former smoker Past Medical/Surgical History Planned Operation Planned Operative Procedure(s): CSCOPE OA Previous Hospitalizations/Surgeries HX Hospitalizations: No Any Problems With Anesthesia: No You/Your Family Experience Fever (Hyperthermia) With Anes: No Cholinesterase deficiency: No Cardiovascular Hx Chest Pain within Last 2 months: No Hx Heart Attack: No Hx Hypertension: No Hx Cardiac Surgery/Stents/Etc.: No Respiratory Hx Chronic Obstructive Pulmonary Disease (COPD): No Hx Sleep Apnea: No Hx Respiratory Tract Infection/Cold (presently): No Do You Snore Loudly (louder than talking or can be heard): No Do You Often Feel Tired/ Fatigued/ Sleepy Dring Daytime?: No Has Anyone Observed You Stop Breathing During Sleep?: No Result (for STOP score): Negative Hx Smoking: No Smoking Status: Former smoker Neurological Hx Multiple Sclerosis: No Does patient have nerve stimulator: No Blood Disorder Hx High Cholesterol: Yes Hx Anemia: No Reproduction : No Genitourinary Hx Dialysis: No Musculoskeletal Hx Arthritis: Yes Hx Rheumatoid Arthritis: No Endocrine Hx Diabetes: No Thyroid Disease: No Psycho/Social Hx Depression: No Hx Dementia: No Miscellaneous Hx Cancer: No Recent Exposure to Contagious Disease: No Allergies No Known Allergies Allergy (Verified 09/14/24 12:10) Discharge Is Pt Admitted From a Assisted, or a Prison: No After D/C, Where Do you Plan to Go: Return Home From the PAT History Number of Risk Factors: 1 Vital Signs Vital Signs Vital Signs: 09/14/24 12:11 09/14/24 12:11 Temperature 98.4 F Temperature Source Temporal Pulse Rate 78 Respiratory Rate 18 Respiratory Pattern Normal Blood Pressure 151/63 H Blood Pressure Mean 92 Blood Pressure Source Monitor Blood Pressure Position Sitting Blood Pressure Location Right Arm Pulse Ox 98 Oxygen Delivery Method Room Air Weight Weight: 216 lb 0.848 oz Body Mass Index (BMI) 39.5 Physical Exam Const alert and oriented x3 HEENT normocephalic Eyes PERRL Resp normal respiratory effort and normal air movement Cardio regular rate and regular rhythm GI soft to palpation, non-tender and non-distended Extremity normal to inspection Assessment & Plan Assessment/Plan (1) History of colon polyps: PLAN: Patient has a history of colon polyps on her last colonoscopy and was recommended to have a repeat. She denies abdominal pain or blood in the stool. I explained endoscopy in detail to the patient. I explained the risks including but not limited to stroke or heart attack with anesthesia, perforation of the GI tract, bleeding, infection. I explained that any of these could necessitate further emergency surgery. The patient understands and all questions were answered sufficiently. The patient wishes to proceed with procedure. Giovanni Brewster MD Pager: [facility] [address] [place] [address], [address] [place] [address] Office: Surgery Risks - Colonoscopy Risks Include but are not Limited To: Risks include but are not limited to: Bleeding, perforation requiring further surgery, inability to complete colonoscopy requiring barium enema.
--- NOTE | 2024-09-14 13:39 | OP.COLON_ITS ---
Patient Name: Ruth Ortiz Procedure Date: 09/14/2024 1:12 PM Date of : 1955 Age: 69 Procedure: Colonoscopy Indications: High risk colon cancer surveillance: Personal history of colonic polyps Providers: Giovanni Brewster MD Referring MD: Iesha Franco Medicines: Propofol per Anesthesia Patient Profile: This is a 69 year old female. Refer to note in patient chart for documentation of history and physical. Last Colonoscopy: more than 3 years ago. Complications: No immediate complications. Procedure: Pre-Anesthesia Assessment: - Prior to the procedure, a History and Physical was performed, and patient medications and allergies were reviewed. The patient's tolerance of previous anesthesia was also reviewed. The risks and benefits of the procedure and the sedation options and risks were discussed with the patient. All questions were answered, and informed consent was obtained. Prior Anticoagulants: The patient has taken no anticoagulant or antiplatelet agents. After reviewing the risks and benefits, the patient was deemed in satisfactory condition to undergo the procedure. After I obtained informed consent, the scope was passed under direct vision. Throughout the procedure, the patient's blood pressure, pulse, and oxygen saturations were monitored continuously. The Colonoscope was introduced through the anus and advanced to the cecum, identified by appendiceal orifice and ileocecal valve. The colonoscopy was performed without difficulty. The patient tolerated the procedure well. The quality of the bowel preparation was good. The ileocecal valve, appendiceal orifice, and rectum were photographed. Scope In: 1:25:32 PM Scope Withdrawal Time 0 hours 6 minutes 55 seconds Scope Out: 1:36:39 PM Total Procedure Duration Time 0 hours 11 minutes 7 seconds Findings: The entire examined colon appeared normal on direct and retroflexion views. Impression: - The entire examined colon is normal on direct and retroflexion views. - No specimens collected. Recommendation: - Discharge patient to home. - Resume previous diet. - Continue present medications. - Repeat colonoscopy is not recommended due to current age (66 years or older) for screening purposes. Procedure Code(s): --- Professional --- 32691, Colonoscopy, flexible; diagnostic, including collection of specimen(s) by brushing or washing, when performed (separate procedure) Diagnosis Code(s): --- Professional --- Z86.010, Personal history of colonic polyps CPT copyright 2021 [employer]. All rights reserved. The codes documented in this report are preliminary and upon hockey scout review may be revised to meet current compliance requirements. Giovanni Brewster MD 09/14/2024 1:38:40 PM This report has been signed electronically. Number of Addenda: 0 Note Initiated On: 09/14/2024 1:12 PM
--- NOTE | 2024-09-14 13:39 | OP.CCLET_ITS ---
09/14/2024 Iesha Franco [address] [place] [address] Re : Colonoscopy procedure for Ruth Ortiz Dear Dr. Franco This procedure was performed on Saturday, September 14, 2024. My impressions and recommendations are as follows: Impressions : - The entire examined colon is normal on direct and retroflexion views. - No specimens collected. Recommendations : - Discharge patient to home. - Resume previous diet. - Continue present medications. - Repeat colonoscopy is not recommended due to current age (66 years or older) for screening purposes. My findings are described in the full procedure note, which is enclosed. If I can be of further assistance, please feel free to contact me at Doctor phone number(s): , Work: . Sincerely, Giovanni Brewster MD 09/14/2024 1:38:40 PM This report has been signed electronically.
--- NOTE | 2024-09-14 13:46 | PCM.POST.ANE ---
Anesthesia: Postop Eval I Current Vital Signs Temperature: 98.2 F Pulse Rate: 70 Blood Pressure: 110/59 Respiratory Rate: 16 Pulse Ox: 97 Oxygen Delivery Method: Room Air Assessment Airway patent: Yes Spontaneous unlabored respirations: Yes Mental status: Awake and Calm nausea: No Vomiting: No Anesthesia Complication: No Fluid Hydration Crystalloid volume administer (ml): 500 Total IV fluid infused: 500 Progress Note Anesthesia document: Postop Eval 1 completed: Yes
--- NOTE | 2024-09-14 16:37 | PCM.POSTANE2 ---
Anesthesia Postop Eval I Sum Postop Eval Completion status Anesthesia document: Postop Eval 1 completed: Yes Anesthesia Postop Eval I Summary Anesthesia Postop Eval I Summary: Anesthesia Postop Eval I: Assessment Summary Airway patent Yes 09/14/24 13:47 [email or web address] Spontaneous unlabored Yes 09/14/24 13:47 [email or web address] respirations Mental status Awake,Calm 09/14/24 13:47 [email or web address] nausea No 09/14/24 13:47 [email or web address] Vomiting No 09/14/24 13:47 [email or web address] Anesthesia Postop Eval I: Fluid Summary Crystalloid volume administer 500 09/14/24 13:47 [email or web address] (ml) Colloids volume administered ( ml) Blood Product volume administered (ml) Total IV fluid infused 500 09/14/24 13:47 [email or web address] Anesthesia Postop Eval I: Summary Notes Anesthesia Complication No 09/14/24 13:47 [email or web address] Anesthesia Complication Comment: Post-operative progress note Anesthesia: Postop Eval II Evaluation Mental status: Awake Pain Level: 0 nausea: No Vomiting: No
== END 2024-09-14 14:11 | disposition home or self-care (01) ==
LOC: EN 11:49 → AC 11:52
PROVIDERS: PCP Family Medicine; Referring Provider Family Medicine; Visit Provider Surgery
PROC: 0DJD8ZZ Inspection of Lower Intestinal Tract, Via Natural or Artificial Opening Endoscopic (ICD-10-PCS; CPT 45378; principal; 2024-09-14 12:55)
DX: Z12.11 Encounter for screening for malignant neoplasm of colon (principal); E78.00 Pure hypercholesterolemia, unspecified; Z79.899 Other long term (current) drug therapy; Z87.891 Personal history of nicotine dependence; Z86.0100 Personal history of colon polyps, unspecified
CPT/HCPCS: 45378; J2405

== ENCOUNTER → 2024-12-11 | Outpatient (CLI) | payer MEDICARE, SELFPAY ==
--- NOTE | 2024-12-11 14:12 | RAD_ITS ---
EXAM: XR Left Hip With Pelvis When Performed, 2 or 3 Views CLINICAL INDICATION: SCIATICA/ PAIN IN LEFT HIP TECHNIQUE: Two or three views of the left hip with pelvis when performed. COMPARISON: No relevant prior studies available. FINDINGS: BONES/JOINTS: Moderate degenerative changes of the hip joint. No acute fracture. No dislocation. SOFT TISSUES: Unremarkable. RAD/HIP, UNI W/ Pelvis 2-3 Views IMPRESSION: Degenerative changes as above. Reading Location: [id number]
--- NOTE | 2024-12-11 14:12 | RAD_ITS ---
EXAM: XR Lumbosacral Spine, 4 or 5 Views CLINICAL INDICATION: SCIATICA/ PAIN IN LEFT HIP TECHNIQUE: Frontal, lateral and bilateral oblique views of the lumbar spine. COMPARISON: No relevant prior studies available. FINDINGS: VERTEBRAE: Moderate facet arthropathy of L4-S1. Normal alignment. No acute fracture. SACRUM/COCCYX: Unremarkable as visualized. No acute fracture. DISC SPACES: No acute findings. No significant narrowing. SOFT TISSUES: Unremarkable. RAD/L/S Spine Min 4 Views IMPRESSION: 1. No acute fracture. 2. Degenerative changes as above. 3. If symptoms persist, further evaluation with MRI is recommended. Reading Location: [id number]
== END | disposition home or self-care (01) ==
LOC: MTRAD 14:10
PROVIDERS: PCP Nurse Practitioner Family; Referring Provider Nurse Practitioner Family; Visit Provider Nurse Practitioner Family
DX: M25.552 Pain in left hip (principal); M54.32 Sciatica, left side
CPT/HCPCS: 72110; 73502

== ENCOUNTER 2025-03-04 08:18 | Day surgery (SDC) | payer MEDICARE, SELFPAY ==
[2025-03-04] VITALS (8 sets, daily range): BP systolic 119–151; BP diastolic 50–85; PULSE 63–71; RESP 16; TEMP 36.4–36.9; O2SAT 97–100; BMI 37.7
--- NOTE | 2025-03-04 09:00 | RAD_ITS ---
PROCEDURE: FLUORO GUIDED NEEDLE PLACEMENT; O.R. FLUORO FOR C-ARM 03/04/2025 REASON FOR EXAM: HIP INJECTION LEFT TECHNIQUE: Procedure Code: RADFGN; RADORFL_C_ARM Modality: DX Procedure: FLUORO GUIDED NEEDLE PLACEMENT; O.R. FLUORO FOR C-ARM. Fluoroscopy time: 4.2 seconds. Dose: 1.34 mGy. RAD/Fluoro Guided Needle Placement IMPRESSION: Intraoperative fluoroscopy was performed for left hip joint injection. 2 fluor oscopic images were also obtained. Reading Location: [place] [id number]
--- NOTE | 2025-03-04 09:00 | RAD_ITS ---
PROCEDURE: FLUORO GUIDED NEEDLE PLACEMENT; O.R. FLUORO FOR C-ARM 03/04/2025 REASON FOR EXAM: HIP INJECTION LEFT TECHNIQUE: Procedure Code: RADFGN; RADORFL_C_ARM Modality: DX Procedure: FLUORO GUIDED NEEDLE PLACEMENT; O.R. FLUORO FOR C-ARM. Fluoroscopy time: 4.2 seconds. Dose: 1.34 mGy. RAD/O.R. Fluoro for C-Arm IMPRESSION: Intraoperative fluoroscopy was performed for left hip joint injection. 2 fluor oscopic images were also obtained. Reading Location: [place] [id number]
[2025-03-04] MEDS: Lactated Ringers 1,000 ML 15 ML IV (09:14)
--- NOTE | 2025-03-04 09:42 | PRE.ANES_ITS ---
ASA Classification* ASA Classification ASA Classification: 2 Assessment & Plan Anesthesia* Anesthesia Assessment Anesthesia Assessment: Discussed sedation and/or anesthesia options, risks, benefits, and alternatives with patient/parents/legal guardian/POA. Questions invited. The patient/parents/legal guardian/POA seems to understand and agrees to proceed with anesthesia plan. Reviewed the physical assessment, medical history, allergy history and patient home medications list prior to surgery/procedure/anesthetic and documented any changes. Performed airway and anesthesia risk assessments. Anesthesia Type Anesthesia Type: MAC History Source History Obtained from:: Patient and Chart Anesthesia Focused Assessment* Temperature: 97.5 F Pulse Rate: 68 Blood Pressure: 151/60 Respiratory Rate: 16 Pulse Ox: 100 Oxygen Delivery Method: Room Air Airway Assessment Mouth opens: >3 cm Mallampati Score: III Teeth Condition: Dentures (Patient has full upper and lower dentures. 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 When Was Last Pacemaker Check QUESTION #4 FULL TEXT: You/Your Family Experience fever (hyperthermia) with Anesthesia Last Oral Intake Last Oral intake: Last Oral Intake NPO since 05:30 03/04/25 09:08 Meds taken in AM with sips of No 03/04/25 09:08 water? 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 Female Yes 02/27/25 13:21 HX of Motion Sickness No 02/27/25 13:21 HX of N/V After Surgery No 02/27/25 13:21 Non-Smoker Yes 02/27/25 13:21 Duration of Surgery greater No 02/27/25 13:21 than 60 minutes Number of Risk Factors 2 02/27/25 13:21 PONV Score Moderate Risk 02/27/25 13:21 Height & Weight Height & Weight: Anesthesia: Height & Weight Height 5 ft 2.5 in 03/04/25 09:08 Weight: 95 kg 03/04/25 09:08 Body Mass Index (BMI) 37.7 03/04/25 09:08 Respiratory Assessment Respiratory Assessment - packaging 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 Has anyone observed you stop No 02/27/25 13:21 breathing during sleep? STOP Results Negative 02/27/25 13:21 QUESTION #5 FULL TEXT : Do you snore loudly (louder than talking or can be heard through closed doors)? 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 Specify any problems Hx of Preganancy in last 3 N/A 02/27/25 13:21 Months Nurse Filling Out Transfusion NBUCHER 02/27/25 13:21 & Questions: Date: 02/27/25 02/27/25 13:21 Time: 13:21 02/27/25 13:21 Patient unable to answer at this time (ie. 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: /Reproductive Hx- packaging machine supplies distributor Hx Now No 02/27/25 13:21 Gestational Age (in weeks): EDC: Hx Hx Para Hx Section SAB No 02/27/25 13:21 Does the father of the baby or his family experience fever w Father of the baby Malignant Hypertension history comment Active Medications Active Medications: Current Medications Generic Name Dose Route Start Last Admin Trade Name Freq PRN Reason Stop Dose Admin Lactated Ringer's 1,000 mls @ 15 mls/hr 03/04/25 09:00 03/04/25 09:14 IV 15 mls/hr .Q48H DUC Administration PFSH Medical History Wears glasses Wears dentures Post-menopausal Arthritis High cholesterol Shortness of breath on exertion Leg cramps Former smoker Screening for colon cancer Home Medications Medication Instructions Recorded Last Taken Type estradiol 0.01% (0.1 mg/gram) 0.25 appful vaginal SUWE 09/13/24 Unknown History vaginal cream (Estrace) rosuvastatin 10 mg tablet 10 mg PO QHS high colesterol 09/13/24 03/03/25 History Allergy/AdvReac Type Severity Reaction Status Date / Time No Known Allergies Allergy Verified 02/27/25 13:20 Surgical History History of bunionectomy of right great toe History of bunionectomy of both great toes Hx of lumbar discectomy Hx of tubal ligation Hx of ovarian cystectomy Hx of colonoscopy Social History Smoking Status: Former smoker Review of Systems (Anesthesia) ROS Narrative System reviewed and no additional complaints, except as documented.
[2025-03-04] MEDS: Lidocaine 1% (5 ml sdv) 5 ML Vial (10:06)
--- NOTE | 2025-03-04 10:17 | PCM.POST.ANE ---
Anesthesia: Postop Eval I Current Vital Signs Temperature: 97.6 F Pulse Rate: 71 Blood Pressure: 119/68 Respiratory Rate: 16 Pulse Ox: 97 Assessment Airway patent: Yes Spontaneous unlabored respirations: Yes nausea: No Vomiting: No Anesthesia Complication: No Fluid Hydration Crystalloid volume administer (ml): 200 Total IV fluid infused: 200 Progress Note Anesthesia document: Postop Eval 1 completed: Yes
--- NOTE | 2025-03-04 10:19 | PCM.OPRPT ---
Operative Report (Standard) Operative Information Date of Procedure: 03/04/25 Pre-Operative Diagnosis: Osteoarthritis of the left hip Post-Operative Diagnosis: Osteoarthritis of the left hip Surgery/Procedure Performed: Left hip intra-articular steroid injection under fluoroscopic guidance emanations analysis technician: No Type of Anesthesia: Local MAC RN Documented Start/Stop Times: Operation Date: 03/04/25 10:00 Case Time Into Pre-Op 03/04/25 08:45 Anesthesia Start 03/04/25 10:01 Into Room 03/04/25 10:01 Procedure Start 03/04/25 10:06 Procedure End 03/04/25 10:11 Anesthesia End 03/04/25 10:13 Out of Room 03/04/25 10:13 Procedure Start Time: Procedure Stop Time: Select all DRAINS/GRAFTS/IMPLANTS that apply: None Estimated Blood Loss: 1 Specimen collected: No Description of surgery: ANESTHESIA: MAC. BLOOD LOSS: Minimal. COMPLICATIONS: None. DESCRIPTION OF PROCEDURE: History and physical of today was reviewed. Risks and benefits of the procedure were explained. The patient understood and agreed to proceed. Informed consent was obtained. IV inserted per routine protocol. The patient was taken to the operating room and placed in the supine position. The left hip area was prepped and draped in a sterile fashion using iodine x3. Under fluoroscopy guidance on AP view, the left hip joint was visualized. The skin and subcutaneous tissue was anesthetized with approximately 3 mL of 1% lidocaine using a 25-gauge regular needle approximately 3 cm cephalad to the left greater trochanter. Under direct visualization with fluoroscopy on an AP view, using a 22-gauge 5-inch spinal needle, the needle was advanced via the skin using the lateral approach. The tip of the needle was maneuvered and directed towards the superiormost aspect of the hip joint. Once the tip of the needle was at the vicinity of the joint, after negative aspiration for blood and positive aspiration of synovial fluid, a total of 1 mL of contrast was injected to confirm correct placement of the needle as well as halo spread around the hip joint. After repeated negative aspiration for blood and confirmation on AP as well as oblique view, a total of 10 mL of preservative-free 0.25% Marcaine with 80 mg of Depo-Medrol was injected easily. The needle was then removed intact. The patient experienced no sign or symptoms of intrathecal or intravascular injection. The patient experienced no paresthesia. The procedure was completed without any apparent difficulty or any complications. The patient appeared to tolerate it well. ASSESSMENT AND PLAN: This is a 70-year-old female with osteoarthritis of the left hip status post left hip intra-articular steroid injection under fluoroscopic guidance, patient will continue her current medications, patient will follow-up in approximately 2 weeks for reevaluation. Surgical Findings: i Complications Complications: No Admit VTE Documentation VTE Present on Admission: No VTE Mechan Device Prophylaxis: None VTE Pharm Prophylaxis ordered?: No
--- NOTE | 2025-03-04 10:47 | POSTOPAN2_ITS ---
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
--- NOTE | 2025-03-04 10:47 | PCM.POSTANE2 ---
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
== END 2025-03-04 10:55 | disposition home or self-care (01) ==
LOC: SDC 08:21 → AC 08:51
PROVIDERS: PCP Nurse Practitioner Family; Referring Provider Anesthesiology Pain Medicine; Visit Provider Anesthesiology Pain Medicine
DX: M16.12 Unilateral primary osteoarthritis, left hip (principal); Z79.899 Other long term (current) drug therapy
CPT/HCPCS: 20610; 01120; 76000; 77002